=== PATIENT | female | born 1990 | race Caucasian/White ===

== ENCOUNTER 2017-01-10 09:49 | Outpatient (CLI) | payer OTHER ==
--- NOTE | 2017-01-10 14:51 | ULT ---
OB ULTRASOUND: HISTORY: Assess size and dates. FINDINGS: There is a single viable intrauterine identified. Gestational age by ultrasound is 27 weeks 6 days. BPD: 27 weeks 3 days HC: 28 weeks 3 days AC: 27 weeks 3 days FL: 27 weeks 3 days EFW: 1093 g (consistent with 26 weeks 4 days). HEART RATE: 132 beats per minute. PLACENTA: Posterior. AMNIOTIC FLUID: Adequate. PRUDENCIO: Recorded at 15.3 cm. CERVICAL LENGTH: 8.1 cm. anatomy evaluated includes intracranial contents, four chamber heart, stomach, kidneys, cord i nsertion, bladder, spine, face, and upper extremities. A three vessel cord is documented. No abnor mality is identified. IMPRESSION: A 27 week and 6 day gestation by ultrasound measurement. No abnormality identified. POS: DOC
== END 2017-01-10 09:50 | disposition home or self-care (01) ==
LOC: ULT 09:49
PROVIDERS: ATTEND Family Medicine
DX: Z33.1 Pregnant state, incidental (principal)
CPT/HCPCS: 76805

== ENCOUNTER 2017-04-08 19:15 | Inpatient (IN) | payer MEDICAID, OTHER, SELFPAY ==
[2017-04-08 19:50] VITALS: BMI 32.1
[2017-04-08] MEDS: Lactated Ringer's 1,000 ML IV SCH ×2 (20:00→21:53)
[2017-04-08] MEDS ORDERED: Naloxone HCl 0.4 mg/ml Vial IV PRN ×3 (20:11→21:42)
[2017-04-08] MEDS ORDERED: Fentanyl 4 mcg/Marc 0.1% Cadd 100 ML in Premix Bag 1 BAG EPIDURAL SCH ×2 (20:11→21:42)
[2017-04-08 20:13] LABS: Hemoglobin 11.6 g/dL (12.0-16.0); Mean Corpuscular HGB CONC 34.1 g/dL (32.0-36.0); Mean Corpuscular Hemoglobin 29.5 pg (27.0-31.0); Mean Corpuscular Volume 86.4 fl (81.0-99.0); Mean Platelet Volume 8.5 fL (7.4-10.4); Platelet Count 197 thou/uL (130-400); RBC Distribution Width 17.4 % (11.5-14.5); Red Blood Cell (RBC) Count 3.93 mill/uL (4.20-5.40); White Blood Cell (WBC) Count 13.5 thou/uL (4.8-10.8)
[2017-04-08] MEDS ORDERED: LR / Pitocin 40 units/1000 ml 40 UNITS/1,000 ML BAG IV SCH (20:30)
[2017-04-08 20:55] LABS: Syphilis Antibody Nonreactive (Nonreactive); Syphilis Antibody Index 0.05 S/CO (<1.00 Non-Reactive)
[2017-04-08] MEDS ORDERED: Misoprostol 200 MCG TAB PR PRN (21:12)
[2017-04-08] MEDS ORDERED: HYDROcodone/Acetaminophen 5/325 mg Tablet PO PRN (21:12)
[2017-04-08] MEDS ORDERED: Lidocaine 1% (PF) 30 ML VIAL SC PRN (21:12)
[2017-04-08] MEDS ORDERED: LR / Pitocin 40 units/1000 ml 1,000 ML IV PRN (21:12)
[2017-04-08] MEDS ORDERED: Acetaminophen 500 MG TAB PO PRN (21:12)
[2017-04-08] MEDS ORDERED: Promethazine HCl 25 MG/ML VIAL IM PRN ×2 (21:12→21:42)
[2017-04-08] MEDS ORDERED: Ondansetron HCl/PF 4 MG/2 ML Vial IVP PRN ×2 (21:12→21:42)
[2017-04-08] MEDS ORDERED: Ibuprofen 800 MG TAB PO PRN (21:12)
[2017-04-08] MEDS ORDERED: Acetaminophen/Codeine 30-300mg Tablet PO PRN (21:12)
[2017-04-08] MEDS ORDERED: ePHEDrine/0.9% NaCl/PF SYRINGE 50 mg/10 ml SLOW IVP PRN (21:42)
[2017-04-08] MEDS ORDERED: Lactated Ringer's 500 ML IV PRN (21:42)
[2017-04-08] MEDS ORDERED: diphenhydrAMINE 50 MG/ML VIAL IVP PRN (21:42)
[2017-04-08] MEDS ORDERED: Acetaminophen 325 MG TAB PO PRN (21:42)
[2017-04-08] MEDS ORDERED: Eucerin (Mineral Oil/Petrolatum,White) 30 gm Jar TOP PRN (21:42)
[2017-04-08 22:36] LABS: HBSAg Index 0.22 S/CO (0-0.99); Hep B Surf Ag Non-Reactive S/CO (NonReactive)
[2017-04-09] MEDS ORDERED: Benzocaine/Menthol 20-0.5% 60 ML CAN TOP PRN (01:16)
[2017-04-09] MEDS ORDERED: Bisacodyl 10 MG SUPP PR PRN (01:16)
[2017-04-09] MEDS ORDERED: diphenhydrAMINE 25 MG CAP PO PRN (01:16)
[2017-04-09] MEDS ORDERED: LR / Pitocin 40 units/1000 ml 1,000 ML IV SCH (01:16)
[2017-04-09] MEDS ORDERED: HYDROcodone/Acetaminophen 5/325 mg Tablet PO PRN ×2 (01:16→02:00)
[2017-04-09] MEDS ORDERED: Milk Of Magnesia 30 ML UDCUP PO PRN (01:16)
[2017-04-09] MEDS ORDERED: Ondansetron HCl/PF 4 MG/2 ML Vial IVP PRN (01:16)
[2017-04-09] MEDS ORDERED: Lanolin Ointment 7 GM TUBE TOP PRN (01:16)
[2017-04-09] MEDS ORDERED: Acetaminophen/Codeine 30-300mg Tablet PO PRN (01:16)
[2017-04-09] MEDS ORDERED: Ibuprofen 800 MG TAB PO SCH (01:30)
[2017-04-09] MEDS: Ibuprofen 800 MG TAB PO SCH ×3 (05:45→22:14)
[2017-04-09] MEDS: Prenatal Vitamin 1 TAB PO SCH (09:30)
[2017-04-09] MEDS: Docusate Calcium (SURFAK) 240 MG CAP PO SCH ×2 (09:30→22:14)
[2017-04-09] MEDS: Ferrous Sulfate 325 MG TAB PO SCH ×2 (09:30→17:29)
[2017-04-09] MEDS ORDERED: Bupivacaine 0.25% HCL 30 ML VIAL ONE (15:03)
[2017-04-10] MEDS: Ibuprofen 800 MG TAB PO SCH ×2 (05:52→14:21)
[2017-04-10 08:47] VITALS: BP 101/55; TEMP 99
[2017-04-10] MEDS: Prenatal Vitamin 1 TAB PO SCH (09:29)
[2017-04-10] MEDS: Docusate Calcium (SURFAK) 240 MG CAP PO SCH (09:29)
[2017-04-10] MEDS: Ferrous Sulfate 325 MG TAB PO SCH (09:29)
== END 2017-04-10 17:00 | disposition home or self-care (01) | DRG 775 ==
LOC: L&D/OP 19:15 → L&D 20:59 → 3SW 04-09 03:05
PROVIDERS: ADMIT Family Medicine; ATTEND Family Medicine
PROC: 10E0XZZ Delivery of Products of Conception, External Approach (ICD-10-PCS; principal; 2017-04-09)
DX: O99.02 Anemia complicating childbirth (principal); Z37.0 Single live birth; Z3A.40 40 weeks gestation of pregnancy
CPT/HCPCS: 51702; 85027; 86780; 87340; 99285; J2001; S0020